=== PATIENT | male | born 1940 | race Two or more races ===

== ENCOUNTER → 2024-09-27 | Outpatient (CLI) | payer MEDICARE, MEDICAID, SELFPAY ==
--- NOTE | 2024-09-27 09:24 | XR_ITS ---
Examination: Lumbar spine 3 views Technique one AP lateral coned lateral lower lumbar spine 3 views Exam date and time: September 27, 2024 0946 hours INDICATIONS: Low back pain beginning 6 months ago. FINDINGS: Lumbar dextroscoliosis 10 degrees Aneurysmal dilatation calcified abdominal aorta AP dimension L4 level 3.1 cm Diffuse moderate to advanced lumbar degenerative disease Prominent lumbar spondylosis IMPRESSION: Diffuse moderate to advanced lumbar degenerative disc disease Recommend ultrasound abdominal aorta follow-up
[2024-09-27 10:45] LABS: Sed Rate (ESR) 7 mm/hr (0-20)
[2024-09-27 10:55] LABS: C-Reactive Protein < 0.5 mg/dL (0.0-0.9)
== END | disposition home or self-care (01) ==
LOC: COPL 09:05
PROVIDERS: PCP Internal Medicine; Referring Provider Internal Medicine; Visit Provider Internal Medicine
DX: M54.50 Low back pain, unspecified (principal); M79.10 Myalgia, unspecified site
CPT/HCPCS: 36415; 72100; 85652; 86140

== ENCOUNTER → 2024-10-13 | Outpatient (CLI) | payer MEDICARE, MEDICAID, SELFPAY ==
--- NOTE | 2024-10-13 14:30 | XR_ITS ---
Examination: Ultrasound abdominal aorta TECHNIQUE: Sonographic images abdominal aorta and iliac arteries Exam date and time: October 13, 2024 1435 hours INDICATIONS: Smoking history 20 years, aneurysmal dilatation abdominal aorta 3.1 cm on lumbar spine films September 27, 2024 FINDINGS: Transverse dimension proximal aorta 2.9 cm, mid aorta 2.9 cm, distal aorta 2.4 cm, right iliac 1.4 cm, left iliac 1.4 cm IMPRESSION: Mild aneurysmal dilatation abdominal aorta
== END | disposition home or self-care (01) ==
LOC: CDIM 14:05
PROVIDERS: PCP Internal Medicine; Referring Provider Internal Medicine; Visit Provider Internal Medicine
DX: I71.40 Abdominal aortic aneurysm, without rupture, unspecified (principal)
CPT/HCPCS: 76706

== ENCOUNTER → 2024-10-23 | Outpatient (CLI) | payer MEDICARE, MEDICAID, SELFPAY ==
[2024-10-23 09:47] LABS: Basophils # (Auto) 0.1 Thou/mm3 (0.0-0.2); Basophils % (Auto) 1 % (0-2.5); Eosinophils # (Auto) 0.6 Thou/mm3 (0.0-0.5); Eosinophils % (Auto) 8 % (0-10); Hematocrit 43.5 % (41.0-53.0); Immature Granulocytes % (Auto) 0 % (0-0); Immature Granulocytes Auto 0.02 Thou/mm3 (0.00-0.00); Lymphocytes # (Auto) 1.6 Thou/mm3 (1.0-4.8); Lymphocytes % (Auto) 20 % (10-50); Mean Corpuscular HGB Conc 32.2 g/dl (31.0-37.0); Mean Corpuscular Hemoglobin 28.2 pg (25.0-35.0); Mean Corpuscular Volume 88 fL (80-100); Monocytes # (Auto) 0.6 Thou/mm3 (0.0-0.8); Monocytes % (Auto) 8 % (0-12); Neutrophils # (Auto) 4.8 Thou/mm3 (1.8-7.7); Neutrophils % (Auto) 63 % (37-80); Nucleated Red Blood Cell % 0 /100 WBC (0); Platelet Count 184 Thou/mm3 (140-440); RDW Standard Deviation 42.3 fL (35.1-43.9); Red Blood Count 4.96 Miln/mm3 (4.50-5.90); White Blood Count 7.7 Thou/mm3 (3.8-10.6)
[2024-10-23 09:58] LABS: Alanine Aminotransferase 10 U/L (10-49); Albumin, Serum 3.9 gm/dL (3.4-4.8); Albumin/Globulin Ratio 1.8 (1.2-2.2); Alkaline Phosphatase 112 U/L (46-116); Anion Gap 7 (7-16); Aspartate Amino Transferase 13 U/L (0-34); BUN/Creatinine Ratio 20 Ratio (12-20); Bilirubin,Total 0.8 mg/dL (0.3-1.2); Blood Urea Nitrogen 20 mg/dL (9-23); Calcium 9.1 mg/dL (8.3-10.6); Calcium (Corrected) 9.2 mg/dL (8.5-10.1); Carbon Dioxide 30.5 mMol/L (20.0-31.0); Cardiac Risk Estimate 4.7 RATIO (4.0-6.7); Chloride 107 mMol/L (98-107); Cholesterol 199 mg/dL (132-200); Globulin 2.2 gm/dL (2.3-3.5); Glucose 103 mg/dL (74-106); HDL Cholesterol 42 mg/dL (40-60); LDL Cholesterol,Calculated 132 mg/dL (0-130); Magnesium 1.8 mg/dL (1.6-2.6); Osmolality,Calculated 289 (275-295); Potassium 4.4 mMol/L (3.4-5.1); Sodium 144 mMol/L (136-145); Thyroid Stimulating Hormone 1.59 uIU/mL (0.55-4.78); Total Protein 6.1 gm/dL (5.7-8.2); Triglycerides 125 mg/dL (30-150); eGFR > 60 See Note
[2024-10-23 10:09] LABS: Syphilis Nonreactive (Nonreactive)
[2024-10-23 10:11] LABS: Glucose Estimated Average 114 mg/dL (80-131); Hemoglobin A1C 5.6 % Hgb (4.8-6.0)
[2024-10-23 15:35] LABS: Chlamydia trachomatis PCR Negative (Not Detect); Neisseria Gonorrhoeae DNA PCR Negative (Not Detect); Trichomonas Negative (Negative)
[2024-10-26 07:26] LABS: HIV Ag/Ab, 4th Gen NON-REACTIVE
== END | disposition home or self-care (01) ==
LOC: COPL 08:01
PROVIDERS: PCP Internal Medicine; Referring Provider Internal Medicine; Visit Provider Internal Medicine
DX: E78.00 Pure hypercholesterolemia, unspecified (principal); R25.2 Cramp and spasm; R73.03 Prediabetes; R97.20 Elevated prostate specific antigen [PSA]; Z11.3 Encounter for screening for infections with a predominantly sexual mode of transmission; Z79.899 Other long term (current) drug therapy
CPT/HCPCS: 36415; 80053; 80061; 80074; 83036; 83735; 84443; 85025; 86780; 87389; 87491; 87591; 87661

== ENCOUNTER → 2024-12-05 | Outpatient (CLI) | payer MEDICARE, MEDICAID, SELFPAY ==
[2024-12-05 10:57] LABS: Anion Gap 9 (7-16); BUN/Creatinine Ratio 18 Ratio (12-20); Blood Urea Nitrogen 22 mg/dL (9-23); Calcium 8.6 mg/dL (8.3-10.6); Carbon Dioxide 30.1 mMol/L (20.0-31.0); Chloride 106 mMol/L (98-107); Creatinine (Component) 1.2 mg/dL (0.6-1.3); Glucose 107 mg/dL (74-106); Osmolality,Calculated 292 (275-295); Potassium 4.3 mMol/L (3.4-5.1); Sodium 145 mMol/L (136-145); eGFR > 60 See Note
== END | disposition home or self-care (01) ==
LOC: COPL 09:05
PROVIDERS: PCP Internal Medicine; Referring Provider Internal Medicine Cardiovascular Disease; Visit Provider Internal Medicine Cardiovascular Disease
DX: I25.10 Atherosclerotic heart disease of native coronary artery without angina pectoris (principal)
CPT/HCPCS: 36415; 80048; 83735; 83880

== ENCOUNTER → 2025-02-20 | Outpatient (CLI) | payer MEDICARE, MEDICAID, SELFPAY ==
[2025-02-20 16:27] LABS: Collection Type, Urine Clean Catch; Squamous Epithelial Cell,Urine 0 /hpf (0-5)
[2025-02-20 17:58] LABS: Bilirubin,Urine Negative (Negative); Blood,Urine Negative (Negative); Clarity,Urine Clear (Clear/Hazy); Color,Urine Lt-Yellow (Lt Yel-Yel); Culture Indicated,Urine Not Indicated; Glucose, Urine Negative (Negative); Hyaline Casts,Urine < 1 /hpf (0-1); Ketones,Urine Negative (Negative); Leukocyte Esterase,Urine Positive (Negative); Nitrite,Urine Negative (Negative); PH,Urine 5.0 (5.0-7.0); Protein,Urine Negative (Neg - Trace); RBC,Urine 2 /hpf (0-3); Specific Gravity,Urine 1.012 (1.001-1.035); Urobilinogen,Urine Negative mg/dL (0.0-1.0); WBC,Urine 7 /hpf (0-5)
== END | disposition home or self-care (01) ==
PROVIDERS: Referring Provider Physician Assistant; Visit Provider Physician Assistant
DX: R31.0 Gross hematuria (principal)
CPT/HCPCS: 81001

== ENCOUNTER → 2025-02-20 | Outpatient (BNVA) | payer MEDICARE, MEDICAID, SELFPAY | END | disposition home or self-care (01) | PROVIDERS: Visit Provider Physician Assistant | DX: R97.20 Elevated prostate specific antigen [PSA] (principal); I10 Essential (primary) hypertension; I25.10 Atherosclerotic heart disease of native coronary artery without angina pectoris; Z95.5 Presence of coronary angioplasty implant and graft | CPT/HCPCS: Q3014 ==

== ENCOUNTER → 2025-03-10 | Outpatient (CLI) | payer MEDICARE, MEDICAID, SELFPAY ==
--- NOTE | 2025-03-10 09:45 | XR_ITS ---
Examination: MRI lumbar spine without contrast Date and time of exam: March 10, 2025, 0940 hrs. Indications: Low back pain radiating down both legs beginning 30 years ago Technique: Multiple MRI axial and sagittal sections lumbar spine. Sagittal T2-weighted images, TR 3500, TE 118 T1 weighted transverse sections, TR 688 T8.5, T2-weighted sagittal sections T1 weighted sagittal sections TR 621, TE 30 T2 axial sections, TR 4, 190, TE 84. Findings: Adequate alignment lumbar vertebral bodies. No lumbar fracture. Mild to moderate diffuse lumbar disc narrowing, diffuse lumbar disc desiccation. No spondylolisthesis L5-S1 no disc protrusion L4-L5 3 mm central lumbar disc bulge L3-L4 4 mm central lumbar disc bulge L2-L3 no disc protrusion. L1-L2 no disc protrusion. Impression: Diffuse lumbar degenerative disc disease L4-L5 3 mm central lumbar disc bulge L3-L4 4 mm central lumbar disc bulge
== END | disposition home or self-care (01) ==
LOC: SMRI 03-15 06:47
PROVIDERS: Referring Provider Internal Medicine; Visit Provider Internal Medicine
DX: M51.360 Other intervertebral disc degeneration, lumbar region with discogenic back pain only (principal); G89.29 Other chronic pain
CPT/HCPCS: 72148

== ENCOUNTER → 2025-03-26 | Outpatient (BNVA) | payer MEDICARE, MEDICAID, SELFPAY | END | disposition home or self-care (01) | PROVIDERS: Visit Provider Urology | DX: Z53.8 Procedure and treatment not carried out for other reasons (principal) | CPT/HCPCS: 81003; 99211; J1580; J3490; A9270; G0463 ==

== ENCOUNTER → 2025-04-09 | Outpatient (BNVA) | payer MEDICARE, MEDICAID, SELFPAY | END | disposition home or self-care (01) | PROVIDERS: Visit Provider Urology | DX: N42.89 Other specified disorders of prostate (principal); N40.1 Benign prostatic hyperplasia with lower urinary tract symptoms; N13.8 Other obstructive and reflux uropathy | CPT/HCPCS: 55700; 76942; 81003; 96372; A4649; J1580; J3490; A9270 ==

== ENCOUNTER → 2025-04-20 | Outpatient (BNVA) | payer MEDICARE, MEDICAID, SELFPAY | END | disposition home or self-care (01) | PROVIDERS: Visit Provider Urology | DX: N35.919 Unspecified urethral stricture, male, unspecified site (principal); N32.89 Other specified disorders of bladder; N40.1 Benign prostatic hyperplasia with lower urinary tract symptoms; N13.8 Other obstructive and reflux uropathy | CPT/HCPCS: 52281; 96372; A4217; A4649; C1894; J1580; A9270 ==

== ENCOUNTER → 2025-05-29 | Outpatient (CLI) | payer MEDICARE, MEDICAID, SELFPAY ==
--- NOTE | 2025-05-29 13:45 | XR_ITS ---
Examination: Retroperitoneal ultrasound, complete Technique: Multiple high resolution grayscale images of the retroperitoneum obtained, including kidneys and bladder. Exam date and time: May 29, 2025, 1339 hours INDICATIONS: Hematuria laboratory examination 1 month ago. FINDINGS: Right kidney 11.0 cm renal cortex 0.8 cm 18 x 20 mm upper pole cyst Left kidney 11.4 cm renal cortex 1.9 cm Suspicious for mass in the mid left kidney 11 x 9 x 11 mm Moderate renal scar formation No hydronephrosis No bladder mass or bladder calculi Significant prostatomegaly 62 cc no prostate nodules IMPRESSION: Recommend MRI abdomen kidneys follow-up pre and postcontrast to confirm a 11 x 9 x 11 mm solid mass left kidney
== END | disposition home or self-care (01) ==
LOC: CDIM 13:25
PROVIDERS: Referring Provider Urology; Visit Provider Urology
DX: N28.89 Other specified disorders of kidney and ureter (principal)
CPT/HCPCS: 76770

== ENCOUNTER → 2025-06-14 | Outpatient (CLI) | payer MEDICARE, MEDICAID, SELFPAY ==
--- NOTE | 2025-06-14 14:58 | XR_ITS ---
EXAMINATION: PA lateral chest 2 views TECHNIQUE: Upright PA lateral chest 2 views Date and time: June 14, 2025, 1527 hours INDICATIONS: Coughing a days. FINDINGS: No significant cardiac enlargement Ectatic thoracic aorta. Accentuation basilar bronchovascular markings Moderate hyperexpansion Prominent osteopenia IMPRESSION: COPD Basilar bronchitis pattern
== END | disposition home or self-care (01) ==
DX: J44.9 Chronic obstructive pulmonary disease, unspecified (principal)
CPT/HCPCS: 71046

== ENCOUNTER 2025-06-29 09:40 | Day surgery (SDC) | payer MEDICARE, MEDICAID, SELFPAY ==
[2025-06-27 15:38] VITALS: BMI 25.0
--- NOTE | 2025-06-28 07:00 | EKG_ITS ---
[facility] Test Date: 2025-06-28 Pat Name: DARIO ANTHONY Department: Room: - Gender: Male Cpr Ambulance Driver: BETTE : 1940 Requested By: Don Bryant Order Number: [id number] Reading MD: Don Bryant Measurements Intervals [place] Rate: 68 P: 53 KS: 212 QRS: -20 QRSD: 120 T: 30 QT: 374 QTc: 398 Interpretive Statements SINUS RHYTHM WITH FIRST DEGREE AV BLOCK MODERATE INTRAVENTRICULAR CONDUCTION DELAY [110+ ms QRS DURATION] No previous ECG available for comparison /[id number]/[email or web address]/[id number]
[2025-06-28 12:34] LABS: Basophils # (Auto) 0.1 Thou/mm3 (0.0-0.2); Basophils % (Auto) 1 % (0-2.5); Eosinophils # (Auto) 0.4 Thou/mm3 (0.0-0.5); Eosinophils % (Auto) 4 % (0-10); Hematocrit 40.3 % (41.0-53.0); Hemoglobin 13.2 g/dL (13.5-16.0); Immature Granulocytes Auto 0.04 Thou/mm3 (0.00-0.00); Lymphocytes # (Auto) 1.7 Thou/mm3 (1.0-4.8); Lymphocytes % (Auto) 18 % (10-50); Mean Corpuscular HGB Conc 32.8 g/dl (31.0-37.0); Mean Corpuscular Hemoglobin 28.8 pg (25.0-35.0); Mean Corpuscular Volume 88 fL (80-100); Monocytes # (Auto) 0.8 Thou/mm3 (0.0-0.8); Monocytes % (Auto) 8 % (0-12); Neutrophils # (Auto) 6.6 Thou/mm3 (1.8-7.7); Neutrophils % (Auto) 68 % (37-80); Nucleated Red Blood Cell # 0.00 Thou/mm3 (0.00-0.00); Nucleated Red Blood Cell % 0 /100 WBC (0); Platelet Count 208 Thou/mm3 (140-440); RDW Standard Deviation 40.6 fL (35.1-43.9); Red Blood Count 4.58 Miln/mm3 (4.50-5.90); White Blood Count 9.7 Thou/mm3 (3.8-10.6)
[2025-06-28 12:45] LABS: Anion Gap 12 (7-16); BUN/Creatinine Ratio 15 Ratio (12-20); Blood Urea Nitrogen 18 mg/dL (9-23); Calcium 9.1 mg/dL (8.3-10.6); Carbon Dioxide 30.5 mMol/L (20.0-31.0); Chloride 107 mMol/L (98-107); Creatinine (Component) 1.2 mg/dL (0.6-1.3); Estimated Creatinine Clearance 40.6 mL/min (>60); Glucose 100 mg/dL (74-106); Osmolality,Calculated 298 (275-295); Potassium 4.0 mMol/L (3.4-5.1); Sodium 149 mMol/L (136-145); eGFR > 60 See Note
[2025-06-28 12:49] LABS: INR 1.0 (0.9-1.3); Partial Thromboplastin Time 29.3 Seconds (22.0-36.0); Prothrombin Time 10.7 Seconds (9.0-12.2)
[2025-06-29] VITALS (13 sets, daily range): BP systolic 121–160; BP diastolic 68–91; PULSE 61–80; RESP 17–19; TEMP 36.7–37.1; O2SAT 95–98
--- NOTE | 2025-06-29 16:01 | PD.CARDCATH ---
Cardiac Cath Procedure Procedure Name DATE OF PROCEDURE: 06/29/25 PROCEDURE PERFORMED: 1. Left heart cardiac catheterization including right, left coronary angiograms and left ventriculogram 2. Successful complex PCI of the mid LAD with a 2.7 x 15 mm [place] stent with excellent results and no residual stenosis or complications 2. Ultrasound-guided access of the right radial artery 3. Conscious sedation for 30 minutes CLIMATE CHANGE ANALYST: Don Bryant MD Procedure Narrative Procedure Narrative HISTORY AND INDICATIONS: Patient is an 85-year-old male with a past medical history of CAD s/p [employer] Synergy 3.50mm x 16mm to proximal LAD in 2019 , history of stroke, essential hypertension, hyperlipidemia, history of smoking for 20 years with almost [id number] smoking history (quit in 1999), and occasional alcohol use. Patient had ischemic cardiac work up due to chest pain, NST showed Abnormal myocardial perfusion study as there is decreased uptake in the inferior and inferoapical segments of LV wall with stress and improves with rest indicating possible stress induced ischemia. EF at 60%. Normal TID and wall motion. Patient was brought in for an elective cardiac catheterization. All the risk benefits and alternatives of left heart cardiac catheterization were explained in detail including the risk of bleeding, heart attack, stroke and in detail. Patient agreeable for the procedure and provided the consent. H&P updated. DESCRIPTION OF PROCEDURE: The patient was brought to the cardiac catheterization lab analysis the precautions were followed. Patient was given 1 Mg of Versed and 50 mcg of fentanyl for moderate conscious sedation. 2 mL of lidocaine was given in the right wrist. The right radial artery was accessed via the ultrasound guidance as well as micropuncture technique. A 6 British glide sheath was introduced. We then used a 6 British TIG 4 catheter to perform the left coronary angiogram as well as a left ventriculogram which showed the following findings. 1. Left dominant circulation 2. Left main artery is a large artery without any Significant disease 2. LAD arises artery with patent stents in the proximal segment, but severe 80-90% stenosis in the mid segment. Small diagonals without any significant disease. 3. LCx is a large size artery with mild 20-30% disease in the mid segments. Gives OM1, LPL and LPDA, which are large arteries without any significant disease. 4. RCA is small size non dominant artery with proximal and mid 40-50% stenosis. 5. LVEF is normal at 60 to 65% with normal LVEDP. There was no significant transvalvular aortic gradient INTERVENTION: A 6 British JL 3.5 guide catheter was used to engage the left main artery. Patient was given weight-based heparin and ACT was greater than 250 although the procedure. Run-through guidewire was used to cross the lesion in the LAD without any complications. We then use a second run-through wire as sentinel wire to adjust the position of the balloon or the stent of the LAD lesion. A 2.5 x 12 mm semicompliant balloon was used for predilatation and was predilated multiple times at 6, 8 and 10 maria isabel respectively. We then used 2.7 x 15 mm Sylvester stent and carefully positioned in mid LAD and multiple images were taken. The [place] stent was deployed at 12 and 14 maria isabel for a total of 45 seconds Excellent results achieved with LEO-3 flow and no other complications. Final angiographic pictures were taken and all interventional equipment was removed. ACC data: Preprocedure:-Mid LAD with 80% stenosis with LEO-3 flow Post procedure: Mid LAD with 0% residual stenosis with LEO-3 flow Patient was already on aspirin and Brilinta which were continued. A radial band was used to achieve the hemostasis of the right radial artery access. Patient will be monitored in the cardiac Clinical Education Assistant for the next 2 to 3 hours and will be discharged home later if hemodynamically stable. Complications: None Specimens: None Blood loss: Estimated 10 ML Summary/findings: 1. Abnormal stress test:LHC showed patent stents in the proximal LAD without any significant stenosis. Rest of the LHC showed severe 80% stenosis of mid LAD, 20-30% stenosis of mid LCx, 40-50% stenosis of small dominant RCA, rest of the coronaries with minimal luminal irregularities. 2. LVEF was normal at 55 to 60% with normal LVEDP. No significant transvalvular aortic gradient noted. 3. Successful complex PCI of the mid LAD with a 2.7 x 15 mm Sylvester stent with excellent results and no complications. Recommendations: 1. Recommended dual antiplatelet therapy with aspirin 81 mg once daily lifetime and Brilinta 90 mg twice daily for at least 1 year. High intensity statin and beta-blockers to be continued 2. Recommend aggressive risk factor modification 3. Patient recommended not to lift any weight more than 5 to 10 pounds for the next 7 days and follow-up with mi in the office in 7 days. Don Bryant MD Interventional Cardiology.
--- NOTE | 2025-06-29 16:41 | PC.NURSE ---
at 16:30 i removed the TR Band, there was a small amount of blood coming out from the puncture site, manual pressure was held and wrapped with a 4x4 gauze and coband, puncture site is no longer bleeding and no hematoma is noted, no more active bleeding noted as well
--- NOTE | 2025-07-02 15:26 | PD.CARDCATH ---
Cardiac Cath Procedure Procedure Name Date of procedure: 07/02/25 PROCEDURE PERFORMED: 1. Left heart cardiac catheterization including right, left coronary angiograms and left ventriculogram 2. Successful complex PCI of the mid RCA with a 3.0 x 18 mm [place] SORAIDA stent with excellent results and no residual stenosis or complications 2. Ultrasound-guided access of the right radial artery 3. Conscious sedation for 30 minutes STEAM TANK OPERATOR: Don Bryant MD Procedure Narrative HISTORY AND INDICATIONS: A 74-year-old female with a past medical history of essential hypertension, type 2 diabetes mellitus, asthma, hyperlipidemia, GERD, constipation, seasonal allergies, obesity, family history of heart disease. Patient had ischemic cardiac work up given persistent chest pain that radiated from the back. Patient was brought in for an elective cardiac catheterization. All the risk benefits and alternatives of left heart cardiac attrition were explained in detail including the risk of bleeding, heart attack, stroke and in detail. Patient agreeable for the procedure and provided the consent. H&P updated. DESCRIPTION OF PROCEDURE: The patient was brought to the cardiac catheterization lab analysis the precautions were followed. Patient was given 1 Mg of Versed and 50 mcg of fentanyl for moderate conscious sedation. 2 mL of lidocaine was given in the right wrist. The right radial artery was accessed via the ultrasound guidance as well as micropuncture technique. A 6 Burmese glide sheath was introduced. We then used a 6 Burmese TIG 4 catheter to perform the left coronary angiogram as well as a left ventriculogram which showed the following findings. A JR 3.5 SH sidehole catheter was used for right coronary angiogram as well as performing the PCI of the ostial RCA. 1. Right dominant circulation 2. Left main artery is a large artery without any Significant disease 2. LAD is a large size artery. Gives small diagonals without any significant disease. 3. LCx is a large size artery with mild disease in the proximal and mid segments. OM1 is a medium artery with moderate 40 to 50% stenosis as well as OM 2 is a medium sized artery with moderate 60 to 70% stenosis in the proximal segment. 4. RCA is large size artery with severe 95% stenosis of the ostial RCA and mild to moderate diffuse disease in the mid as well as the distal RCA. 5. LVEF is normal at 60 to 65% with normal LVEDP. There was no significant transvalvular aortic gradient INTERVENTION: A 6 Burmese JL 3.5 guide catheter was used to engage the left main artery. Patient was given weight-based heparin and ACT was greater than 250 although the procedure. Run-through guidewire was used to cross the lesion in the LAD without any complications. We then use a second run-through wire as sentinel wire to adjust the position of the balloon or the stent of the LAD lesion. A 2.5 x 12 mm semicompliant balloon was used for predilatation and was predilated multiple times at 6, 8 and 10 maria isabel respectively. We then used 2.7 x 15 mm Sylvester stent and carefully positioned in mid LAD and multiple images were taken. The Sylvester stent was deployed at 12 and 14 maria isabel for a total of 45 seconds Excellent results achieved with LEO-3 flow and no other complications. Final angiographic pictures were taken and all interventional equipment was removed. ACC data: Preprocedure:-Ostial RCA with 90 to 95% stenosis with LEO-3 flow Post procedure: Ostial RCA with 0% residual stenosis with LEO-3 flow Patient was already on aspirin and Brilinta which were continued. A radial band was used to achieve the hemostasis of the right radial artery access. Patient will be monitored in the cardiac Cash Management Specialist for the next 2 to 3 hours and will be discharged home later if hemodynamically stable. Complications: None Specimens: None Blood loss: Estimated 10 ML Summary/findings: 1. LHC showed patent stents in the mid as well as distal LAD without any significant stenosis replacing #2024. Rest of the LHC showed severe residual 90 to 95% stenosis of the ostial RCA, moderate disease proximal LAD, rest of the RCA, OM1 and OM 2 as described above. 2. LVEF was normal at 55 to 60% with normal LVEDP. No significant transvalvular aortic gradient noted. 3. Successful complex PCI performed of the ostial RCA with 3.5 x 16 mm Synergy SORAIDA stent [Megatron] with excellent results and no complications. Recommendations: 1. Recommended dual antiplatelet therapy with aspirin 81 mg once daily lifetime and Brilinta 90 mg twice daily for at least 1 year. High intensity statin and beta-blockers to be continued 2. Recommend aggressive risk factor modification 3. Patient recommended not to lift any weight more than 5 to 10 pounds for the next 7 days and follow-up with me in the office in 7 days. Don Bryant MD Interventional Cardiology.
[2025-07-03 09:27] LABS: ACT (CATH LAB ONLY) 308.0 Seconds (89-169)
== END 2025-06-29 17:32 | disposition home or self-care (01) ==
PROVIDERS: Referring Provider Internal Medicine Cardiovascular Disease; Visit Provider Internal Medicine Cardiovascular Disease
PROC: (CPT 93458; principal; 2025-06-29 11:00)
DX: I25.10 Atherosclerotic heart disease of native coronary artery without angina pectoris (principal); R94.39 Abnormal result of other cardiovascular function study; I49.1 Atrial premature depolarization; I10 Essential (primary) hypertension; E78.5 Hyperlipidemia, unspecified; F17.200 Nicotine dependence, unspecified, uncomplicated; Z98.61 Coronary angioplasty status; Z86.73 Personal history of transient ischemic attack (TIA), and cerebral infarction without residual deficits; Z01.810 Encounter for preprocedural cardiovascular examination; Z79.82 Long term (current) use of aspirin; Z79.899 Other long term (current) drug therapy
CPT/HCPCS: 93458; C9600; 36415; 80048; 85025; 85347; 85610; 85730; 93005; 99152; 99153; A4649; C1725; C1769; C1874; C1887; C1894; J0168; J0461; J1643; J2250; J2312; J2371; J3010; J3490; Q9967; A9270; J2305